=== PATIENT | male | born 1950 | race Caucasian/White ===

== ENCOUNTER 2017-09-21 09:46 | Day surgery (SDC) | payer OTHER ==
[2017-09-21 11:01] LABS: ADD MAN DIFF? NO
[2017-09-21 11:07] LABS: WHITE BLOOD COUNT 7.9 10^3/ul (4.8-10.8)
[2017-09-21 11:07] LABS: BASOPHIL # 0.1 10^3/ul (0.0-0.1); BASOPHILS % 0.8 % (0.0-2.0); EOSINOPHILS # 0.4 10^3/ul (0.0-0.5); EOSINOPHILS % 4.8 % (0.0-7.0); HEMATOCRIT 39.4 % (42.0-52.0); HEMOGLOBIN 12.2 g/dl (14.0-18.0); LYMPHOCYTES # 1.4 10^3/ul (0.8-2.9); LYMPHOCYTES % 17.3 % (15.0-51.0); MEAN CORPUSCULAR HEMOGLOBIN 19.6 pg (29.0-33.0); MEAN CORPUSCULAR VOLUME 63.4 fl (82.0-101.0); MEAN PLATELET VOLUME 10.4 fl (7.4-10.4); MONOCYTE # 0.5 10^3/ul (0.3-0.9); MONOCYTES % 6.8 % (0.0-11.0); NEUTROPHIL # 5.6 10^3/ul (1.6-7.5); PLATELET COUNT 180 10^3/UL (140-415); RED BLOOD COUNT 6.21 10^6/ul (4.70-6.10); RED CELL DISTRIBUTION WIDTH 17.6 % (11.5-14.5)
[2017-09-21 11:29] LABS: ALANINE AMINOTRANSFERASE 30 IU/L (13-69); ALBUMIN 4.3 g/dl (3.3-4.9); ALBUMIN/GLOBULIN RATIO 1.26; ALKALINE PHOSPHATASE 56 IU/L (42-121); ANION GAP 14 (8-16); ASPARTATE AMINO TRANSFERASE 23 IU/L (15-46); BILIRUBIN,INDIRECT 1.9 mg/dl (0-1.1); BILIRUBIN,TOTAL 1.9 mg/dl (0.2-1.3); CARBON DIOXIDE 32 mmol/L (21-31); CHLORIDE 106 mmol/L (97-110); GLUCOSE 119 mg/dl (70-220); TOTAL PROTEIN 7.7 g/dl (6.1-8.1)
[2017-09-21 11:30] LABS: INR 1.92; PROTIME 22.4 Sec (11.9-14.9); PT RATIO 1.8
[2017-09-21 11:31] LABS: BLOOD UREA NITROGEN 12 mg/dl (7-20); CALCIUM 9.2 mg/dl (8.4-10.2); CREATININE 1.01 mg/dl (0.61-1.24); POTASSIUM 4.5 mmol/L (3.5-5.1); SODIUM 147 mmol/L (135-144)
[2017-09-21] MEDS ORDERED: FENTAnyl 50 MCG/ML VIAL (12:03)
[2017-09-21] MEDS ORDERED: EPHEDrine SULFATE 50 MG/5 ML SYG (12:03)
[2017-09-21] MEDS ORDERED: PROPOFOL 20 ML (12:03)
== END 2017-09-21 17:02 | disposition home or self-care (01) ==
LOC: SDS 09:46
DX: I48.91 Unspecified atrial fibrillation (principal); I10 Essential (primary) hypertension; R94.31 Abnormal electrocardiogram [ECG] [EKG]; E78.5 Hyperlipidemia, unspecified
CPT/HCPCS: 80053; 85025; 85610; 85730; 93005; 93312; 93320; 93325